=== PATIENT | female | born 1990 | race Asian ===

== ENCOUNTER 2018-09-01 16:09 | Emergency (ER) | payer BC ==
[~2018-09-01] VITALS: Ht 162.6 cm; Wt 79.4 kg
[2018-09-01 16:20] VITALS: Ht 162.6 cm; Wt 79.4 kg
[2018-09-01 19:20] VITALS: BP 118/69
== END 2018-09-01 19:20 | disposition home or self-care (01) ==
LOC: ED 16:09
DX: S16.1XXA Strain of muscle, fascia and tendon at neck level, initial encounter (principal); S39.012A Strain of muscle, fascia and tendon of lower back, initial encounter; S00.31XA Abrasion of nose, initial encounter; J45.909 Unspecified asthma, uncomplicated; Z91.018 Allergy to other foods; V49.88XA Car occupant (driver) (passenger) injured in other specified transport accidents, initial encounter; Y93.89 Activity, other specified; Y92.89 Other specified places as the place of occurrence of the external cause; Y99.8 Other external cause status
CPT/HCPCS: 90715

== ENCOUNTER 2020-10-07 20:01 | Emergency (ER) | payer BC ==
[~2020-10-07] VITALS: Ht 160 cm; Wt 76.7 kg
[2020-10-07 20:19] VITALS: Ht 160 cm; Wt 76.7 kg
[2020-10-07 21:32] VITALS: BP 153/98
== END 2020-10-07 21:32 | disposition home or self-care (01) ==
LOC: ED 20:01
DX: R51.9 Headache, unspecified (principal); R42 Dizziness and giddiness; J45.909 Unspecified asthma, uncomplicated; Z91.018 Allergy to other foods